=== PATIENT | female | born 1980 | race Caucasian/White ===

== ENCOUNTER → 2018-01-14 | Outpatient (REF) | payer MEDICAID, SELFPAY | LOC: M SFHCCLAY 11:29 | PROVIDERS: ATTEND Nurse Practitioner Family | DX: Z12.4 Encounter for screening for malignant neoplasm of cervix (principal); R87.613 High grade squamous intraepithelial lesion on cytologic smear of cervix (HGSIL) ==

== ENCOUNTER → 2018-04-22 | Outpatient (REF) | payer OTHER | LOC: M LAB REF 19:17 | PROVIDERS: ATTEND Obstetrics & Gynecology | DX: R87.613 High grade squamous intraepithelial lesion on cytologic smear of cervix (HGSIL) (principal) ==

== ENCOUNTER 2018-06-18 06:30 | Day surgery (SDC) | payer OTHER ==
[~2018-06-18] VITALS: Ht 163.8 cm; Wt 61.2 kg
[~2018-06-18 06:30] MED LIST: MELA10CA PO
[2018-06-18] MEDS: LR 1,000 ML IV SCH ×2 (06:59→07:20)
[2018-06-18 07:08] LABS: HEMATOCRIT 45.8 % (36.0-47.0); HEMOGLOBIN 14.9 g/dl (12.0-15.5); MEAN CORPUSCULAR HGB CONC 32.5 g/dl (32.0-36.5); MEAN CORPUSCULAR VOLUME 98.5 fl (80.0-96.0); PLATELET COUNT, AUTOMATED 422 10^3/uL (150-450); RED BLOOD COUNT 4.65 10^6/uL (4.00-5.40); WHITE BLOOD COUNT 10.9 10^3/uL (4.0-10.0)
[2018-06-18] MEDS ORDERED: IODINE STRONG SOLN 15 ML BTL As Ordered ONE (07:09)
[2018-06-18] MEDS ORDERED: LIDOCAINE W/EPINEPHRINE 1% 20ML VIAL As Ordered ONE (07:09)
[2018-06-18] MEDS ORDERED: SILVER NITRATE APPLICATOR As Ordered ONE (07:09)
[2018-06-18] MEDS ORDERED: MIDAZOLAM INJ 2 MG/2 ML VIAL (J2250) As Ordered ONE (07:18)
[2018-06-18] MEDS ORDERED: PROPOFOL 200 MG/20 ML VIAL As Ordered ONE (07:18)
[2018-06-18] MEDS ORDERED: LIDOCAINE 2% INJ 100 MG/5 ML SDV (FOR ANES.) As Ordered ONE (07:18)
[2018-06-18] MEDS ORDERED: dexameTHASONE 4 MG/ML 1ML VIAL (J1100) As Ordered ONE ×2 (07:18→07:50)
[2018-06-18] MEDS ORDERED: ONDANSETRON 4MG/2ML VIAL (J2405) As Ordered ONE (07:18)
[2018-06-18] MEDS ORDERED: fentaNYL 100 MCG/2 ML INJECTION (J3010) As Ordered ONE ×2 (07:19→09:01)
[2018-06-18 07:31] LABS: HCG, SERUM QUALITATIVE NEGATIVE (NEGATIVE)
[2018-06-18] MEDS ORDERED: KETOROLAC 60 MG/2 ML VIAL (J1885) As Ordered ONE (07:50)
[2018-06-18] MEDS ORDERED: METOCLOPRAMIDE INJ 10MG/2ML VIAL (J2765) As Ordered ONE (08:05)
[2018-06-18] MEDS ORDERED: ACETAMINOPHEN 1000MG 100ML IV BTL (OFIRMEV) (J0131 PER 10MG) As Ordered ONE (08:27)
[2018-06-18] MEDS ORDERED: OXYC1TAB23 PO (08:58)
[2018-06-18] MEDS ORDERED: IBUP80TA PO (08:59)
[2018-06-18] MEDS ORDERED: COLA100C5 PO (09:00)
[2018-06-18] MEDS: fentaNYL 100 MCG/2 ML INJECTION (J3010) IV PRN ×2 (09:00→09:05)
[2018-06-18] MEDS ORDERED: oxyCODONE 5MG TAB As Ordered ONE (09:01)
[2018-06-18] MEDS ORDERED: LR 1,000 ML IV SCH ×2 (09:15)
[2018-06-18] MEDS ORDERED: ONDANSETRON 4MG/2ML VIAL (J2405) IV PRN (09:15)
[2018-06-18] MEDS ORDERED: oxyCODONE 5MG TAB PO PRN (09:15)
[2018-06-18 09:24] VITALS: BP 156/82
--- NOTE | 2018-06-18 13:44 | RO ---
DATE OF PROCEDURE: 06/18/2018 PREOPERATIVE DIAGNOSIS: Cervical intraepithelial neoplasia (NANCI) 3. Severe cervical dysplasia. POSTOPERATIVE DIAGNOSIS: Cervical intraepithelial neoplasia (NANCI) 3. Severe cervical dysplasia. PROCEDURE PERFORMED: Cold knife conization of the cervix. SURGEON: Dr. Lito Asencio DO FACOG VOLTMETER OPERATOR: None. ANESTHESIA: General via LMA. SPECIMENS SENT TO PATHOLOGY: Cervical cone specimen, tagged 12 o'clock, intact. ESTIMATED BLOOD LOSS: 50 mL. FLUIDS REPLACED: 500 mL lactated Ringers. DRAINS: In-and-out catheter. URINE OUTPUT: 50 mL of cloudy urine, sent for urine culture. COMPLICATIONS: None. PREOPERATIVE ANTIBIOTICS: None indicated. INTRAOPERATIVE FINDINGS: Lugol's differential uptake circumferentially around the transformation zone indicating NANCI III throughout the transformation zone as found with colposcopic-directed biopsies. DESCRIPTION OF PROCEDURE: The patient was counseled and consented on the risks, benefits, indications and alternatives of the procedure. Informed consent was obtained. She was taken to the operating room with an IV running and placed on operating table in the dorsal supine position. General anesthesia was administered and the airway secured without any difficulty. She was placed in the high lithotomy position. She was prepared and draped in normal sterile fashion. A time-out was performed per protocol. The bladder was drained with a sterile in-and-out catheter. Sterile speculum was placed with good visualization of the cervix. A single-tooth tenaculum used to grasp the anterior lip of the cervix and downward traction was applied. 1% lidocaine with epinephrine was used to perform a paracervical block and inject the cervical stroma with this local anesthetic. After this was done, stay sutures were placed at the 3 o'clock and 9 o'clock positions with 0 Vicryl. Lugol solution was applied with the findings noted above. Using an 11 blade, a cervical cone specimen was created circumferentially without any incidental cutting or disruption of the cone specimen. The intact specimen was removed and tagged at 12 o'clock. The remaining surgical site was cauterized with the rollerball cautery until excellent hemostasis was achieved. A Sturmdorf suture was placed from 6 o'clock to 9 o'clock to control some bleeding along that side of the cervix. Excellent hemostasis was noted. Monsel solution was applied to ensure hemostasis. Pressure was applied as well. After a prolonged period of observation, the cervix was noted to have a very minimal level of bleeding. An additional application of Monsels solution was applied and after this application, no bleeding was noted from the cervix. The stay sutures were cut and the instruments were removed from the vagina. Minimal vaginal bleeding was noted after observation. The patient was transferred to the postanesthesia care unit (PACU) in good stable condition. Of note, the sponge, lap, needle and instrument counts were correct per protocol. AMADO
== END 2018-06-18 09:42 | disposition home or self-care (01) ==
LOC: M SDC 06:30
PROVIDERS: ATTEND Obstetrics & Gynecology
DX: N87.0 Mild cervical dysplasia (principal); F17.210 Nicotine dependence, cigarettes, uncomplicated; Z79.899 Other long term (current) drug therapy
CPT/HCPCS: 36415; 57520; 84703; 85027; 86850; 86900; 86901; 87086; 88307; J0131; J1100; J1885; J2250; J2405; J2765; J3010

== ENCOUNTER → 2020-02-23 | Outpatient (REF) | payer OTHER ==
[~2020-02-23] MED LIST changes: +COLA100C5 PO; +IBUP80TA PO; +OXYC1TAB23 PO
== END ==
LOC: M SFHCWAGY 13:32
PROVIDERS: ATTEND Obstetrics & Gynecology
DX: Z12.4 Encounter for screening for malignant neoplasm of cervix (principal); Z01.419 Encounter for gynecological examination (general) (routine) without abnormal findings